=== PATIENT | male | born 1935 | race Caucasian/White ===

== ENCOUNTER 2018-10-31 | Outpatient (RCR) | END 2018-11-17 23:59 | CPT/HCPCS: 93798 ==

== ENCOUNTER 2018-11-19 07:38 | Outpatient (RCR) ==
[2018-10-31 14:37] VITALS: BMI 23.3
[2018-12-18 09:43] VITALS: BP 120/58
== END 2018-12-18 23:59 ==
LOC: CAR.REHAB 07:38
PROVIDERS: ATTEND Family Medicine
DX: I25.110 Atherosclerotic heart disease of native coronary artery with unstable angina pectoris (principal); Z95.1 Presence of aortocoronary bypass graft; R07.9 Chest pain, unspecified; I77.9 Disorder of arteries and arterioles, unspecified; I10 Essential (primary) hypertension
CPT/HCPCS: 93798

== ENCOUNTER 2018-12-19 07:05 | Outpatient (RCR) ==
[2018-10-31 14:37] VITALS: BMI 23.3
[2019-01-15 09:49] VITALS: BP 132/58
== END 2019-01-15 23:59 ==
LOC: CAR.REHAB 07:05
PROVIDERS: ATTEND Family Medicine
DX: I25.110 Atherosclerotic heart disease of native coronary artery with unstable angina pectoris (principal); Z95.1 Presence of aortocoronary bypass graft; I77.9 Disorder of arteries and arterioles, unspecified; R07.9 Chest pain, unspecified; I10 Essential (primary) hypertension
CPT/HCPCS: 93798

== ENCOUNTER 2019-01-16 07:03 | Outpatient (RCR) ==
[2018-10-31 14:37] VITALS: BMI 23.3
[2019-02-12 09:46] VITALS: BP 128/54
== END 2019-02-15 23:59 ==
LOC: CAR.REHAB 07:03
PROVIDERS: ATTEND Family Medicine
DX: I25.110 Atherosclerotic heart disease of native coronary artery with unstable angina pectoris (principal); Z95.1 Presence of aortocoronary bypass graft; R07.9 Chest pain, unspecified; I77.9 Disorder of arteries and arterioles, unspecified; I10 Essential (primary) hypertension
CPT/HCPCS: 93798

== ENCOUNTER 2019-02-16 09:33 | Outpatient (RCR) ==
[2018-10-31 14:37] VITALS: BMI 23.3
[2019-03-17 09:50] VITALS: BP 132/56
== END 2019-03-17 23:59 ==
LOC: CAR.REHAB 09:33
PROVIDERS: ATTEND Family Medicine
DX: I25.110 Atherosclerotic heart disease of native coronary artery with unstable angina pectoris (principal); Z95.1 Presence of aortocoronary bypass graft; R07.9 Chest pain, unspecified; I77.9 Disorder of arteries and arterioles, unspecified; I10 Essential (primary) hypertension
CPT/HCPCS: 93798

== ENCOUNTER 2019-03-18 07:24 | Outpatient (RCR) ==
[2018-10-31 14:37] VITALS: BMI 23.3
[2019-03-19 10:02] VITALS: BP 118/56
== END 2019-03-19 11:00 | disposition home or self-care (01) ==
LOC: CAR.REHAB 07:24
PROVIDERS: ATTEND Family Medicine
DX: I25.110 Atherosclerotic heart disease of native coronary artery with unstable angina pectoris (principal); I77.9 Disorder of arteries and arterioles, unspecified; I10 Essential (primary) hypertension; R07.9 Chest pain, unspecified; Z95.1 Presence of aortocoronary bypass graft
CPT/HCPCS: 93798

== ENCOUNTER 2024-08-27 06:53 | Observation (INO) ==
--- NOTE | 2024-08-27 07:32 | ED.PDOC ---
General ED Provider: Dr. ANYA VERNON MD Chief Complaint: Dizziness Stated Complaint: Patient with a history of polyneuropathy, type 2 diabetes, hypertension, spondylosis of lumbar spine with radiculopathy, gait difficulty and impairment of balance, complains of feeling dizzy since he is up this morning at 2 ambulation to the bathroom. Patient denies blurred vision, headache. Patient does have generalized weakness with ambulation which is his norm. Patient denies slurred speech focal numbness, tingling, weakness in extremity. Denies chest pain dyspnea, diaphoresis, palpitations. Patient states he has not taken his hypertensive meds today which includes hydralazine 25 mg every 8 hours, losartan 25 mg twice daily, Bystolic 10 mg daily, and nifedipine 60 mg daily. Time Seen by Provider: 08/27/24 07:20 Mode of Arrival: Wheelchair Information Source: Patient Exam Limitations: Clinical condition Primary Care Provider: MIKEY WATERMAN Nursing and Triage Documentation Reviewed and Agree: Yes What is Opioid Naive?: *Opioid Naive implies the patient is not already taking opioids or not chronically receiving opioids on a daily basis. *PRN dosing is not "usually" associated with tolerance. *Patients are at higher risk of over-sedation and aspiration. What is Opioid Tolerant?: *Opioid Tolerance implies less than the expected response to an opioid. *Acquired tolerance is defined by the patient taking 60mg of oral morphine daily (or equianalgesic dose of another opioid) for 1 week or more. *Often associated with chronic pain. *May take more than usual dose to achieve desired pain control. Review of Systems Review Of Systems Constitutional: Reports No symptoms Eyes: Reports No symptoms Ears, Nose, Mouth, Throat: Reports No symptoms Respiratory: Reports No symptoms Cardiac: Reports No symptoms GI: Reports No symptoms : Reports No symptoms Musculoskeletal: Reports No symptoms Skin: Reports No symptoms Neurological: Reports Weakness (Chronic weakness upon ambulation with gait disturbance) and Other ( dizziness, ) Endocrine: Reports No symptoms Hematologic/Lymphatic: Reports No symptoms All Other Systems: Reviewed and Negative [facility] Social History Smoking and tobacco status: Never smoker Physical Exam Physical Exam Appearance: Reports Well-appearing Ill-appearing: None Pain Distress: None Eyes: Reports HALEY, EOMI and Conjunctiva clear ENT: Reports Ears normal Neck: Supple Respiratory: Reports Airway patent Cardiovascular: Reports RRR and Pulses normal GI/: Reports Soft and Nontender Musculoskeletal: Reports Normal strength and ROM intact Skin: Reports Warm and Dry Neurological: Reports Sensation intact Psychiatric: Reports Affect appropriate NIH Stroke Scale 1a. Level of Consciousness: 0=Alert and keenly responsive 1b. Level of Consciousness Questions: 0=Answers correctly to two questions 1c. Level of Consciousness Commands: 0=Performs two tasks correctly 2. Best Gaze: 0=Normal 3. Visual: 0=No visual loss 4. Facial Palsy: 0=Normal 5a. Motor Left Arm: 0=No drift,arm holds 90 degrees for 10 sec., leg 30 degrees for 5 sec. 5b. Motor Right Arm: 0=No drift,arm holds 90 degrees for 10 sec., leg 30 degrees for 5 sec. 6a. Motor Left Le=No drift,arm holds 90 degrees for 10 sec., leg 30 degrees for 5 sec. 6b. Motor Right Le=No drift,arm holds 90 degrees for 10 sec., leg 30 degrees for 5 sec. 7. Limb Ataxia: 0=Absent 8. Sensory: 0=Normal 9. Best Language: 0=No aphasia 10. Dysarthria: 0=Normal 11. Extincion and Inattention: 0=Normal Stroke Scale Total: 0 Critical Care Note Critical Care Note Total Critical Care Time (mins): 0 Course Course 08/27/24 07:44 08/27/24 07:44 Orders, Labs, Meds: Lab Review 08/27/24 08/27/24 08/27/24 07:10 07:39 07:44 WBC 8.76 RBC 4.83 Hgb 13.7 L Hct 43.0 MCV 89.0 MCH 28.4 MCHC 31.9 RDW Coeff of Neri 13.0 Plt Count 309 Immature Gran % (Auto) 0.8 Neut % (Auto) 69.1 Lymph % (Auto) 19.5 [place] % (Auto) 7.8 Eos % (Auto) 2.5 Baso % (Auto) 0.3 Neut # (Auto) 6.1 Lymph # (Auto) 1.7 [place] # (Auto) 0.7 Eos # (Auto) 0.2 Baso # (Auto) 0.0 Immature Gran # (Auto) 0.1 PT 25.7 H INR 2.61 Sodium 141.9 Potassium 4.05 Chloride 107.5 H Carbon Dioxide 24.8 Anion Gap 13.65 BUN 20.2 H Creatinine 1.37 H Estimated GFR (MDRD) 49.00 BUN/Creatinine Ratio 14.74 Glucose 127.6 H Calcium 8.87 Magnesium 1.98 Total Bilirubin 0.57 AST 25.3 ALT 21.0 Alkaline Phosphatase 96.1 Troponin I < 0.012 Total Protein 7.36 Albumin 4.22 Globulin 3.14 Albumin/Globulin Ratio 1.34 Urine Color Yellow Urine Clarity Clear Urine pH 7.0 Ur Specific [place] 1.015 Urine Protein Trace H Urine Glucose (UA) Negative Urine Ketones Negative Urine Blood Trace-lysed Urine Nitrite Negative Urine Bilirubin Negative Urine Urobilinogen 0.2 Ur Leukocyte Esterase Negative Urine Microscopic WBC 0-2 Ur Squamous Epith Cells 2-5 SARS CoV-2 RNA Rapid MONI Negative Orders Category Date Time Status EKG-(ED ONLY) Stat CARDIO 08/27/24 07:32 Completed Unemployment Specialist [ED ORTHOPEDIC MECHANIC APPLIED] .ONCE EMERGENCY 08/27/24 07:32 Active Orthostatic Vital Signs [ED ORTHOSTATIC VITAL SIGNS] . EMERGENCY 08/27/24 07:34 Active ONCE Saline Lock [ED IV/MEDIPORT/POWERPORT] .ONCE EMERGENCY 08/27/24 07:32 Active CBC W/ AUTO DIFF Stat LAB 08/27/24 07:44 Completed CMP [COMPREHENSIVE METABOLIC PANEL] Stat LAB 08/27/24 07:44 Completed COVID [SARS COV-2 RNA RAPID MONI] Stat LAB 08/27/24 07:39 Completed MAGNESIUM Stat LAB 08/27/24 07:44 Completed PT WITH INR Stat LAB 08/27/24 07:44 Completed TROPONIN I Stat LAB 08/27/24 07:44 Completed URINALYSIS C & S IF INDICATED Stat LAB 08/27/24 07:10 Completed 0.9 % Sodium Chloride [Saline Flush] Meds 08/27/24 07:32 Active 1 syr IVF PRN PRN CHEST, 1V AP ONLY Stat RADS 08/27/24 07:[address] HEAD W/O CONTRAST Stat RADS 08/27/24 07:32 Completed Medications Generic Name Dose Route Start Last Admin Trade Name Freq PRN Reason Stop Dose Admin Sodium Chloride 1 syr 08/27/24 07:32 0.9% Sodium Chloride 10 Ml Disp.Syrin IVF PRN PRN To flush IV Vital Signs: Temp Pulse Resp BP Pulse Ox 08/27/24 08:03 164/82 H 08/27/24 08:03 186/90 H 08/27/24 08:03 181/96 H 08/27/24 06:55 97.3 F L 70 18 207/96 H 98 Physician Progress Note: Obtained from patient was a spouse, patient with a history of Drea neuropathy, hypertension, type 2 diabetes, gait disturbance, impairment of balance, lumbar degenerative disc disease with radiculopathy, complains of feeling dizzy upon ambulation to the bathroom 2:00 this morning. Patient denies headache, blurred vision, slurred speech, patient complains of chronic weakness upon ambulation. Patient states he has not taken his blood pressure medicine upon arrival to the emergency room this morning which includes hydralazine 25 mg 3 times daily, losartan 25 mg twice daily, Bystolic 10 mg daily, and nifedipine 60 mg daily. Patient also denies chest pain, diaphoresis, palpitations, coughing, dyspnea. Orthostatic vital signs blood pressure sitting 181/96 blood pressure standing 186/90, blood pressure laying 164/82. Patient was administered his home blood pressure medicines at 0 800 hydralazine 25 mg, losartan 25 g, Bystolic 10 mg, and nifedipine 60 mg orally 0743-EKG interpretation by myself consistent with normal sinus rhythm rate of 67 there is a right bundle branch block noted. There is no prolongation of DE QT interval there is no ectopy noted. There is no ischemic changes only. All laboratory data reviewed and are all within normal limits for the troponin, CBC, CMP. Portable chest x-ray interpretation radiologist consistent with borderline cardiomegaly without infiltrates, pleural effusion, consolidation. The head CT scan without IV contrast interpretation by the radiologist shows no acute intracranial abnormality there is no hemorrhage, mass effect, infarction, midline shift. 0900-repeat blood pressure 169/82 Differential diagnosis: 1) hypertensive urgency Discussed with hospitalist Sajan Smith at 0910 for observation with daily Discharge Plan Discharge Patient Disposition: PLACED OBSERVATION Discharge Problem: Hypertensive urgency Prescriptions: No Action tamsulosin 0.4 mg capsule 0.4 mg PO DAILY Patient Comments: TAKE 1 CAPSULE BY MOUTH ONCE DAILY warfarin 2 mg Tablet 2 mg PO EVERY OTHER DAY vitamin E 400 unit Capsule 400 unit PO DAILY insulin glargine 100 unit/mL Cartridge 50 unit SUBCUT DAILY hydrocodone-acetaminophen 5-325 mg tablet 1 tab PO PRN PRN (Reason: Pain) nifedipine 60 mg tablet extended release 24hr 60 mg PO DAILY warfarin 2 mg tablet 3 mg PO EVERY OTHER DAY cholecalciferol (vitamin D3) [Vitamin D3] 10 mcg (400 unit) Capsule 125 mcg PO DAILY finasteride 5 mg tablet 5 mg PO DAILY hydralazine 25 mg tablet 50 mg PO Q8H nebivolol 20 mg tablet 10 mg PO DAILY geriatric multivitamin-min Tablet 1 tab PO DAILY hydralazine 25 mg tablet 25 mg PO TID Qty: 90 0RF Rx Instructions: Discontinue 50 mg tablets and take this dose by mouth three times daily valacyclovir 1 gram tablet 1,000 mg PO TID linezolid 600 mg tablet 600 mg PO BID losartan 25 mg tablet 25 mg PO 2XD Did you review [place] [employer] for ALL controlled substances?: Not Applicable ED Provider: ANYA VERNON Condition: Stable [place] Coma Scale Felicita Coma Scale Response Scores: Best Response = 15 Comatose Client = 8 or Less Totally Unresponsive = 3
[2024-08-27 07:49] LABS: BASOPHILS % (AUTO) 0.3 % (0.0-3.0); EOSINOPHILS # (AUTO) 0.2 K/ul (0.0-0.7); EOSINOPHILS % (AUTO) 2.5 % (0.0-7.0); HEMOGLOBIN 13.7 g/dl (14.0-18.0); IMMATURE GRANULOCYTE # (AUTO) 0.1 (0.0-1.0); IMMATURE GRANULOCYTE % (AUTO) 0.8 % (0.0-5.0); LYMPHOCYTES # (AUTO) 1.7 K/uL (0.60-3.4); LYMPHOCYTES % (AUTO) 19.5 (10.0-50.0); MEAN CORPUSCULAR HEMOGLOBIN 28.4 pg (27.0-31.0); MEAN CORPUSCULAR HGB CONC 31.9 (31.8-35.4); MONOCYTES # (AUTO) 0.7 K/uL (0.4-2.0); MONOCYTES % (AUTO) 7.8 (0-10); NEUTROPHILS # (AUTO) 6.1 K/ul (2.0-6.9); NEUTROPHILS % (AUTO) 69.1 % (42.2-75.2); PLATELET COUNT 309 10^3/uL (140-440); RED BLOOD COUNT 4.83 10^6/ul (4.70-6.10); WHITE BLOOD COUNT 8.76 K/ul (4.2-10.2)
[2024-08-27 08:05] LABS: PROTHROMBIN TIME 25.7 SEC (9.3-11.0)
[2024-08-27 08:13] LABS: SARS COV-2 RNA RAPID NAAT NEGATIVE (NEGATIVE)
[2024-08-27 08:16] LABS: ALBUMIN 4.22 g/dL (3.5-5.0); ALKALINE PHOSPHATASE 96.1 U/L (56-119); ASPARTATE AMINO TRANSFERASE 25.3 U/L (17-59); BILIRUBIN,TOTAL 0.57 mg/dL (0.2-1.3); BLOOD UREA NITROGEN 20.2 mg/dL (9-20); CALCIUM 8.87 mg/dL (8.4-10.2); CARBON DIOXIDE 24.8 mmol/L (22-30.0); CHLORIDE 107.5 mmol/L (98-107); CREATININE 1.37 mg/dL (0.60-1.10); GLUCOSE 127.6 mg/dL (74-106); MAGNESIUM 1.98 mg/dL (1.6-2.3); POTASSIUM 4.05 mmol/L (3.5-5.1); SODIUM 141.9 mmol/L (134.5-145); TOTAL PROTEIN 7.36 g/dL (6.3-8.2)
[2024-08-27 08:18] LABS: BILIRUBIN,URINE Negative (NEGATIVE); CLARITY,URINE Clear (CLEAR); COLOR,URINE Yellow (YELLOW); GLUCOSE, URINE (UA) Negative (NEGATIVE); KETONES,URINE Negative (NEGATIVE); LEUKOCYTE ESTERASE ,URINE Negative (NEGATIVE); NITRITE,URINE Negative (NEGATIVE); PROTEIN,URINE Trace (NEGATIVE); URINE, BLOOD Trace-lysed (NEGATIVE); UROBILINOGEN,URINE 0.2 (0.2)
[2024-08-27 08:35] LABS: TROPONIN I < 0.012 ng/ml (0.0000-0.120)
[2024-08-27 08:35] LABS: URINE WBC, MICROSCOPIC 0-2 (0-2)
--- NOTE | 2024-08-27 09:00 | DI ---
EXAM: CHEST RADIOGRAPH TECHNIQUE: Single frontal chest radiograph. HISTORY: Shortness of breath. COMPARISON: 05/27/2023 FINDINGS: The patient is mildly leaning and rotated to the right. Sternotomy and CABG, again noted. EKG leads project over the chest. No pulmonary infiltrate is identified. No pleural effusion or pneumothorax is seen. Stable borderline cardiomegaly. No acute displaced rib fractures are identified. IMPRESSION: 1. No acute findings in the chest.
--- NOTE | 2024-08-27 09:01 | CT ---
EXAM: CT SCAN BRAIN WITHOUT CONTRAST HISTORY: Dizziness COMPARISON: CT scan brain 05/19/2023 FINDINGS: Helically acquired axial images were obtained the skull base to the convexities without co ntrast utilizing 5-mm collimation. Sagittal and coronal reconstructions were imaged and reviewed.. The ventricles and CSF spaces are prominent compatible with age appropriate atrophy. There is perive ntricular hypodensity noted compatible with chronic microvascular disease. There are no acute intrac ranial findings. Prominent arachnoid granulations IMPRESSION: No acute findings. All CT scans are performed using dose optimization techniques as appropriate to the performed exam an d include at least one of the following: Automated exposure control, adjustment of the mA and/or kV according t o size, and the use of iterative reconstruction technique.
[2024-08-27 10:07] VITALS: BMI 26.5
[2024-08-27] MEDS ORDERED: TYLENOL PO PRN (10:11)
[2024-08-27] MEDS ORDERED: NORCO 5-325 PO PRN (10:40)
[2024-08-27] MEDS: LANTUS SUBCUT SCH (11:03)
--- NOTE | 2024-08-27 11:42 | PCM ---
Date of Service Date Seen by Provider: 08/27/24 Time Seen by Provider: 11:15 Admit Day/Time Admission Date: 08/27/24 Reason for Admission Chief Complaint: HYPERTENSIVE URGENCY Hospital Provider Hospital [place] [facility] [place] Primary Care Physician: MIKEY WATERMAN History of Present Illness History of Present Illness: 88 yo male presented to the ER with dizziness. States that he gets up in the middle of the night to urinate multiple times and became dizzy the first time getting up. As the night went on, he reports the dizziness worsened. Called 911 and evaluated him to find elevated BP. Refused to come via EMS and came to ER private auto. BP still elevated with systolic in 200s initially. ER provider gave patient home medications and BP improved. Dizziness improved as well. No acute findings on work-up. Admitted to med/surg observation for hypertensive urgency. Case Discussed With Case Discussed With: Patient's case was discussed with the ER Physicians, Dr. Montano. [facility] Social History Smoking and tobacco status: Never smoker Allergies Allergies Allergy/AdvReac Type Severity Reaction Status Date / Time [id number] Reductase AdvReac Hives Verified 08/27/24 06:58 Inhibitor [Bpixqkx-Kku-Nzt Reductase Inhibitor] Current Medications Home Medications insulin glargine 100 unit/mL subcutaneous cartridge 50 unit subcut DAILY 03/25/21 [History Confirmed 08/27/24 Last Taken Unknown] tamsulosin 0.4 mg capsule 0.4 mg PO DAILY 03/25/21 [History Confirmed 08/27/24 Last Taken Unknown] vitamin E 268 mg (400 unit) capsule 400 unit PO DAILY 03/25/21 [History Confirmed 08/27/24 Last Taken Unknown] warfarin 2 mg tablet 3 mg PO BEDTIME 03/25/21 [History Confirmed 08/27/24 Last Taken Unknown] cholecalciferol (vitamin D3) 10 mcg (400 unit) capsule (Vitamin D3) 125 mcg PO DAILY 11/26/22 [History Confirmed 08/27/24 Last Taken Unknown] hydrocodone 5 mg-acetaminophen 325 mg tablet 1 tab PO DAILY PRN Pain 11/26/22 [History Confirmed 08/27/24 Last Taken Unknown] nifedipine 60 mg tablet,extended release 24 hr 60 mg PO DAILY 11/26/22 [History Confirmed 08/27/24 Last Taken Unknown] finasteride 5 mg tablet 5 mg PO DAILY 05/27/23 [History Confirmed 08/27/24 Last Taken Unknown] geriatric multivitamin-min 1 tab PO DAILY 05/27/23 [History Confirmed 08/27/24 Last Taken Unknown] hydralazine 25 mg tablet 25 mg PO TID #90 tabs 05/27/23 [Rx Confirmed 08/27/24 Last Taken Unknown] nebivolol 20 mg tablet 10 mg PO DAILY 05/27/23 [History Confirmed 08/27/24 Last Taken Unknown] linezolid 600 mg tablet 600 mg PO BID 08/27/24 [History Confirmed 08/27/24 Last Taken Unknown] losartan 25 mg tablet 25 mg PO 2XD 08/27/24 [History Confirmed 08/27/24 Last Taken Unknown] valacyclovir 1 gram tablet 1,000 mg PO TID 08/27/24 [History Confirmed 08/27/24 Last Taken Unknown] Home Acetaminophen (Acetaminophen 325 Mg Tablet) 650 mg PO Q4H PRN PRN Reason: Mild Pain Hydrocodone Bitart/Acetaminophen (Hydrocodone Bit/Acetaminophen 5/325 Mg Tablet) 1 tab PO DAILY PRN PRN Reason: Pain Finasteride (Finasteride 5 Mg Tablet) 5 mg PO DAILY [facility] Hydralazine HCl (Hydralazine Hcl 50 Mg Tablet) 25 mg PO TID [facility] Insulin Glargine (Insulin Glargine,Hum.Rec.Anlog 100 Units/Ml) 50 unit SUBCUT DAILY [facility] Last Admin: 08/27/24 11:03 Dose: 50 unit Losartan Potassium (Losartan Potassium 25 Mg Tablet) 25 mg PO 2XD [facility] Nebivolol (Nebivolol Hcl 5 Mg Tablet) 10 mg PO DAILY [facility] Nifedipine (Nifedipine 30 Mg Tab.Er.24) 60 mg PO DAILY [facility] Sodium Chloride (0.9% Sodium Chloride 10 Ml Disp.Syrin) 1 syr IVF PRN PRN PRN Reason: To flush IV Tamsulosin HCl (Tamsulosin Hcl 0.4 Mg Cap.Er.24h) 0.4 mg PO DAILY [facility] Warfarin Sodium (Warfarin Sodium 2 Mg Tablet) 3 mg PO QPM [facility] Opioid Naive vs. Tolerant Does Patient Take Opioids?: No Is Patient Opioid Naive?: Yes What is Opioid Naive?: *Opioid Naive implies the patient is not already taking opioids or not chronically receiving opioids on a daily basis. *PRN dosing is not "usually" associated with tolerance. *Patients are at higher risk of over-sedation and aspiration. Is Patient Opioid Tolerant?: No What is Opioid Tolerant?: *Opioid Tolerance implies less than the expected response to an opioid. *Acquired tolerance is defined by the patient taking 60mg of oral morphine daily (or equianalgesic dose of another opioid) for 1 week or more. *Often associated with chronic pain. *May take more than usual dose to achieve desired pain control. Review of Systems Constitutional: Reports No symptoms Head: Reports Normocephalic Eyes: Reports No symptoms Ears: Reports No symptoms Nose: Reports No symptoms Mouth: Reports No symptoms Throat: Reports No symptoms Cardiovascular: Reports No symptoms Respiratory: Reports No symptoms Gastrointestinal: Reports No symptoms Genitourinary: Reports No Symptoms Musculoskeletal: Reports No symptoms Endocrine: Reports No symptoms Hematology: Reports No symptoms Immunology: Reports No symptoms Neurological: Reports Dizziness Psychiatric: Reports No symptoms Physical examination Most Recent Vital Signs: Most Recent Vital Signs Temperature 97.1 F L 08/27/24 10:00 Temperature Source Oral 08/27/24 10:00 Temperature Source Temporal Artery Scan 08/27/24 06:55 Pulse Rate 62 08/27/24 10:00 Respiratory Rate 18 08/27/24 10:00 Blood Pressure 151/79 H 08/27/24 10:00 Blood Pressure Mean 103 08/27/24 10:00 Blood Pressure Left Arm 151/79 08/27/24 09:50 Blood Pressure Location Right Arm 08/27/24 08:03 Blood Pressure Position Supine 08/27/24 09:50 O2 Sat by Pulse Oximetry 96 08/27/24 10:00 Oxygen Delivery Method Room Air 08/27/24 11:00 Height 6 ft 2 in 08/27/24 09:50 Weight 93.8 kg 08/27/24 09:50 Telemetry Type Remote Telemetry 08/27/24 10:48 Telemetry Monitoring Started 08/27/24 10:48 Telemetry Heart Rate 64 08/27/24 10:48 EKG CO Interval 0.21 H 08/27/24 10:48 EKG QRS Interval 0.06 08/27/24 10:48 Telemetry Strip Reading SR/1st degree AVB 08/27/24 10:48 Appearance: Positive No Apparent Distress and Alert and Oriented x3 Skin: Positive Warm and Good Turgor HEENT: Positive Normocephalic and PERRLA Neck: Positive Supple and Midline Trachea Chest/Lungs: Positive Symmetrical With Equal Breath Sounds, Clear to Auscultation Bilaterally and Good Air Movement all 4 Lung [place] Heart: Positive RRR and Pulses Normal GI/: Positive Soft, Nontender, Bowel Sounds Normal, No Distention and No Organomegaly Musculoskeletal: Positive Not Examined Extremities: Positive Intact Peripheral Pulses, Stable Joints Without Laxity and Good ROM in All Joints Neurological: Positive Sensation Intact, Motor intact, Alert, Oriented and Muscle Strength 5/5 in Upper and Lower Extremities Bilaterally Labs This Visit Labs This Visit: Labs This Visit 08/27/24 08/27/24 08/27/24 07:10 07:39 07:44 WBC 8.76 RBC 4.83 Hgb 13.7 L Hct 43.0 MCV 89.0 MCH 28.4 MCHC 31.9 RDW Coeff of Neri 13.0 Plt Count 309 Immature Gran % (Auto) 0.8 Neut % (Auto) 69.1 Lymph % (Auto) 19.5 [place] % (Auto) 7.8 Eos % (Auto) 2.5 Baso % (Auto) 0.3 Neut # (Auto) 6.1 Lymph # (Auto) 1.7 [place] # (Auto) 0.7 Eos # (Auto) 0.2 Baso # (Auto) 0.0 Immature Gran # (Auto) 0.1 PT 25.7 H INR 2.61 Sodium 141.9 Potassium 4.05 Chloride 107.5 H Carbon Dioxide 24.8 Anion Gap 13.65 BUN 20.2 H Creatinine 1.37 H Estimated GFR (MDRD) 49.00 BUN/Creatinine Ratio 14.74 Glucose 127.6 H Calcium 8.87 Magnesium 1.98 Total Bilirubin 0.57 AST 25.3 ALT 21.0 Alkaline Phosphatase 96.1 Troponin I < 0.012 Total Protein 7.36 Albumin 4.22 Globulin 3.14 Albumin/Globulin Ratio 1.34 Urine Color Yellow Urine Clarity Clear Urine pH 7.0 Ur Specific [place] 1.015 Urine Protein Trace H Urine Glucose (UA) Negative Urine Ketones Negative Urine Blood Trace-lysed Urine Nitrite Negative Urine Bilirubin Negative Urine Urobilinogen 0.2 Ur Leukocyte Esterase Negative Urine Microscopic WBC 0-2 Ur Squamous Epith Cells 2-5 SARS CoV-2 RNA Rapid MONI Negative Imaging Imaging: EXAM: CT SCAN BRAIN WITHOUT CONTRAST HISTORY: Dizziness COMPARISON: CT scan brain 05/19/2023 FINDINGS: Helically acquired axial images were obtained the skull base to the convexities without contrast utilizing 5-mm collimation. Sagittal and coronal reconstructions were imaged and reviewed.. The ventricles and CSF spaces are prominent compatible with age appropriate atrophy. There is periventricular hypodensity noted compatible with chronic microvascular disease. There are no acute intracranial findings. Prominent arachnoid granulations IMPRESSION: No acute findings. EXAM: CHEST RADIOGRAPH TECHNIQUE: Single frontal chest radiograph. HISTORY: Shortness of breath. COMPARISON: 05/27/2023 FINDINGS: The patient is mildly leaning and rotated to the right. Sternotomy and CABG, again noted. EKG leads project over the chest. No pulmonary infiltrate is identified. No pleural effusion or pneumothorax is seen. Stable borderline cardiomegaly. No acute displaced rib fractures are identified. IMPRESSION: 1. No acute findings in the chest. Review Statement Review Statement: I have independently reviewed and interpreted the labs/EKGs/imaging that were ordered by the ER provider. I have reviewed all outside records that are available currently in our EMR including imaging/notes/labs from previous visits. Plan Plan: 1. Hypertensive Urgency - improving, resume home medications - will adjust if needed 2. Dizziness - resolved at this time 3. Diabetes - accuchecks achs, continue long acting 4. Chronic anticoagulation - INR therapeutic, continue coumadin 5. BPH - chronic, continue home medications DVT Prophylaxis: coumadin Time Spent: Greater than 80 minutes spent with patient, 50% of the time spent with this patient was devoted to counseling and coordination of care. [facility] minutes spent discussing advance care planning. Disposition: Admit to: Med/surg Observation DNI Discussed Plan of Care with Dr. Yolanda Aviles. Medications Medication Orders: Medications Ordered Category Date Time Status 0.9 % Sodium Chloride [Saline Flush] Meds 08/27/24 07:32 Active 1 syr IVF PRN PRN Acetaminophen [Tylenol] Meds 08/27/24 10:11 Active 650 mg PO Q4H PRN Finasteride [Proscar] Meds 08/28/24 09:00 Active 5 mg PO DAILY Hydralazine HCl [Apresoline] Meds 08/27/24 15:00 Active 25 mg PO TID Hydrocodone Bit/Acetaminophen [[place] 5-325] Meds 08/27/24 10:40 Active 1 tab PO DAILY PRN Insulin Glargine,Hum.rec.anlog [Lantus] Meds 08/27/24 10:45 Active 50 unit SUBCUT DAILY Losartan Potassium [Cozaar] Meds 08/27/24 21:00 Active 25 mg PO 2XD Nebivolol HCl [Bystolic] Meds 08/28/24 09:00 Active 10 mg PO DAILY Nifedipine [Procardia Xl] Meds 08/28/24 09:00 Active 60 mg PO DAILY Tamsulosin HCl [Flomax] Meds 08/28/24 09:00 Active 0.4 mg PO DAILY Warfarin Sodium [Coumadin] Meds 08/27/24 17:00 Active 3 mg PO QPM
[2024-08-27] MEDS: APRESOLINE PO SCH (14:55)
[2024-08-27] MEDS: COUMADIN PO SCH (16:32)
[2024-08-27] MEDS: COZAAR PO SCH (20:48)
[2024-08-27] MEDS ORDERED: COZAAR PO SCH (21:00)
[2024-08-28] MEDS: APRESOLINE PO STA (02:14)
[2024-08-28 05:17] LABS: BASOPHILS % (AUTO) 0.3 % (0.0-3.0); EOSINOPHILS # (AUTO) 0.3 K/ul (0.0-0.7); EOSINOPHILS % (AUTO) 3.1 % (0.0-7.0); HEMATOCRIT 43.7 % (42.0-52.0); HEMOGLOBIN 13.8 g/dl (14.0-18.0); IMMATURE GRANULOCYTE # (AUTO) 0.1 (0.0-1.0); IMMATURE GRANULOCYTE % (AUTO) 0.7 % (0.0-5.0); LYMPHOCYTES % (AUTO) 32.2 (10.0-50.0); MEAN CORPUSCULAR HEMOGLOBIN 27.9 pg (27.0-31.0); MEAN CORPUSCULAR HGB CONC 31.6 (31.8-35.4); MEAN CORPUSCULAR VOLUME 88.5 fl (80.0-94.0); MONOCYTES # (AUTO) 0.9 K/uL (0.4-2.0); MONOCYTES % (AUTO) 9.2 (0-10); NEUTROPHILS % (AUTO) 54.5 % (42.2-75.2); PLATELET COUNT 327 10^3/uL (140-440); RDW COEFFICIENT OF VARIATION 13.2 % (11.6-14.8); RED BLOOD COUNT 4.94 10^6/ul (4.70-6.10); WHITE BLOOD COUNT 9.21 K/ul (4.2-10.2)
[2024-08-28 05:28] LABS: PROTHROMBIN TIME 23.5 SEC (9.3-11.0)
[2024-08-28 05:32] LABS: ALANINE AMINOTRANSFERASE 19.6 U/L (0-50); ALBUMIN 4.13 g/dL (3.5-5.0); ALKALINE PHOSPHATASE 79.3 U/L (56-119); ASPARTATE AMINO TRANSFERASE 25.7 U/L (17-59); BILIRUBIN,TOTAL 0.72 mg/dL (0.2-1.3); BLOOD UREA NITROGEN 20.8 mg/dL (9-20); CALCIUM 8.82 mg/dL (8.4-10.2); CARBON DIOXIDE 23.1 mmol/L (22-30.0); CHLORIDE 108.6 mmol/L (98-107); CREATININE 1.53 mg/dL (0.60-1.10); POTASSIUM 3.84 mmol/L (3.5-5.1); SODIUM 142.9 mmol/L (134.5-145); TOTAL PROTEIN 7.18 g/dL (6.3-8.2)
[2024-08-28] MEDS: PROCARDIA XL PO SCH (05:43)
[2024-08-28] MEDS: APRESOLINE PO SCH (07:39)
[2024-08-28] MEDS: PROSCAR PO SCH (07:39)
[2024-08-28] MEDS: BYSTOLIC PO SCH ×2 (07:39→09:00)
[2024-08-28] MEDS: FLOMAX PO SCH (07:40)
[2024-08-28] MEDS ORDERED: PROCARDIA XL PO SCH (09:00)
[2024-08-28 10:23] VITALS: RESP 18; TEMP 97.6
--- NOTE | 2024-08-28 13:49 | DCSUM ---
Admission Date Admission Date: 08/27/24 Discharge Date Discharge Date: 08/28/24 Admission Diagnosis Admission Diagnosis: 1. Hypertensive Urgency 2. Dizziness 3. Diabetes 4. Chronic anticoagulation 5. BPH Discharge Diagnosis Discharge Diagnosis: 1. Hypertensive Urgency - Resolved, SBP in 160s 2. Dizziness - Resolved 3. Diabetes - Chronic, stable 4. Chronic anticoagulation - INR therapeutic, continue coumadin 5. BPH - chronic, stable Hospital Provider Hospital Provider: SUSANNA COYNE, [facility] [place] Primary Care Physician Primary Care Physician: MIKEY WATERMAN Summary of History and Physical Summary of History and Physical: 88 yo male presented to the ER with dizziness. States that he gets up in the middle of the night to urinate multiple times and became dizzy the first time getting up. As the night went on, he reports the dizziness worsened. Called 911 and evaluated him to find elevated BP. Refused to come via EMS and came to ER private auto. BP still elevated with systolic in 200s initially. ER provider gave patient home medications and BP improved. Dizziness improved as well. No acute findings on work-up. Admitted to med/surg observation for hypertensive urgency. Hospital Course Subjective: Overnight, there was a mix up with his nifedipine. Did not receive night time down and BP remained elevated. Patient reports dizziness has not returned. Losartan was increased to 50 mg twice and hydralazine was increased to 50 mg thr ee times a day. Tolerating well. No further changes. Requesting to go home. Appearance: Pleasant, No Apparent Distress and Alert HEENT: MMM, Supple and No JVD CVS: No Murmur Abdomen: Soft, Non-Tender and No Distention Respiratory: No Dyspnea Extremities: No Edema Vital Signs: Most Recent Vital Signs Temperature 97.6 F 08/28/24 10:00 Temperature Source Oral 08/28/24 10:00 Temperature Source Temporal Artery Scan 08/27/24 06:55 Pulse Rate 69 08/28/24 10:00 Respiratory Rate 18 08/28/24 10:00 Blood Pressure 200/84 H 08/28/24 10:00 Blood Pressure Mean 122 08/28/24 10:00 Blood Pressure Left Arm 151/79 08/27/24 09:50 Blood Pressure Location Left Arm 08/28/24 10:00 Blood Pressure Position Supine 08/28/24 10:00 O2 Sat by Pulse Oximetry 98 08/28/24 10:00 Oxygen Delivery Method Room Air 08/28/24 13:00 Height 6 ft 2 in 08/27/24 09:50 Weight 93.8 kg 08/27/24 09:50 Telemetry Type Remote Telemetry 08/28/24 01:00 Telemetry Monitoring Continues 08/28/24 01:00 Telemetry Heart Rate 49 L 08/28/24 01:00 EKG IA Interval 0.20 08/28/24 01:00 EKG QRS Interval 0.07 08/28/24 01:00 Telemetry Strip Reading SB 08/28/24 01:00 Imaging: EXAM: CT SCAN BRAIN WITHOUT CONTRAST HISTORY: Dizziness COMPARISON: CT scan brain 05/19/2023 FINDINGS: Helically acquired axial images were obtained the skull base to the convexities without contrast utilizing 5-mm collimation. Sagittal and coronal reconstructions were imaged and reviewed.. The ventricles and CSF spaces are prominent compatible with age appropriate atrophy. There is periventricular hypodensity noted compatible with chronic microvascular disease. There are no acute intracranial findings. Prominent arachnoid granulations IMPRESSION: No acute findings. EXAM: CHEST RADIOGRAPH TECHNIQUE: Single frontal chest radiograph. HISTORY: Shortness of breath. COMPARISON: 05/27/2023 FINDINGS: The patient is mildly leaning and rotated to the right. Sternotomy and CABG, again noted. EKG leads project over the chest. No pulmonary infiltrate is identified. No pleural effusion or pneumothorax is seen. Stable borderline cardiomegaly. No acute displaced rib fractures are identified. IMPRESSION: 1. No acute findings in the chest. Lab Results Last 24 Hours: 08/28/24 04:50 WBC 9.21 RBC 4.94 Hgb 13.8 L Hct 43.7 MCV 88.5 MCH 27.9 MCHC 31.6 L RDW Coeff of Neri 13.2 Plt Count 327 Immature Gran % (Auto) 0.7 Neut % (Auto) 54.5 Lymph % (Auto) 32.2 Pacific % (Auto) 9.2 Eos % (Auto) 3.1 Baso % (Auto) 0.3 Neut # (Auto) 5.0 Lymph # (Auto) 3.0 Pacific # (Auto) 0.9 Eos # (Auto) 0.3 Baso # (Auto) 0.0 Immature Gran # (Auto) 0.1 PT 23.5 H INR 2.37 Sodium 142.9 Potassium 3.84 Chloride 108.6 H Carbon Dioxide 23.1 Anion Gap 15.04 BUN 20.8 H Creatinine 1.53 H Estimated GFR (MDRD) 43.00 BUN/Creatinine Ratio 13.59 Glucose 102.0 Calcium 8.82 Total Bilirubin 0.72 AST 25.7 ALT 19.6 Alkaline Phosphatase 79.3 Total Protein 7.18 Albumin 4.13 Globulin 3.05 Albumin/Globulin Ratio 1.35 Discharge Instructions Discharge Planning: Discharge Planning > 40 minutes If patient is discharged with left ventricular systolic dysfunction: NA Discharged with a beta franklin? [] If no, why not? [] Discharged with an manan/arb? [] If no, why not? [] Diagnosis: Hypertensive Urgency Diet: Diabetic Activity as tolerated Follow-up with PCP next week. Medications: Losartan 50 mg twice a day Hydralazine 50 mg three times a day Discharge Medications: Medications at Discharge (Home Meds & RX) insulin glargine 100 unit/mL subcutaneous cartridge 50 unit subcut DAILY 03/25/21 tamsulosin 0.4 mg capsule 0.4 mg PO DAILY 03/25/21 vitamin E 268 mg (400 unit) capsule 400 unit PO DAILY 03/25/21 warfarin 2 mg tablet 3 mg PO BEDTIME 03/25/21 cholecalciferol (vitamin D3) 10 mcg (400 unit) capsule (Vitamin D3) 125 mcg PO DAILY 11/26/22 hydrocodone 5 mg-acetaminophen 325 mg tablet 1 tab PO DAILY PRN Pain 11/26/22 nifedipine 60 mg tablet,extended release 24 hr 60 mg PO BID 11/26/22 finasteride 5 mg tablet 5 mg PO DAILY 05/27/23 geriatric multivitamin-min 1 tab PO DAILY 05/27/23 hydralazine 25 mg tablet 25 mg PO TID #90 tabs 05/27/23 nebivolol 20 mg tablet 10 mg PO DAILY 05/27/23 losartan 25 mg tablet 25 mg PO 2XD 08/27/24 Discharge Plan Discharge Discharge Orders: Discharge Patient (ONCE); Ordered 08/28/24 Ordered By: CHARLENE JOLLEY Activity Restrictions/Additional Instructions: Diagnosis: Hypertensive Urgency Diet: Diabetic Activity as tolerated Follow-up with PCP next week. Medications: Losartan 50 mg twice a day Hydralazine 50 mg three times a day Instructions: Hypertensive Crisis (GEN) Patient Disposition: HOME WITH FAMILY CARE Prescriptions: New hydralazine 50 mg Tablet 50 mg PO TID Qty: 90 0RF losartan 50 mg tablet 50 mg PO Q12HR Qty: 60 0RF Continued tamsulosin 0.4 mg capsule 0.4 mg PO DAILY Patient Comments: TAKE 1 CAPSULE BY MOUTH ONCE DAILY warfarin 2 mg Tablet 3 mg PO BEDTIME vitamin E 400 unit Capsule 400 unit PO DAILY insulin glargine 100 unit/mL Cartridge 50 unit SUBCUT DAILY hydrocodone-acetaminophen 5-325 mg tablet 1 tab PO DAILY PRN (Reason: Pain) nifedipine 60 mg tablet extended release 24hr 60 mg PO BID cholecalciferol (vitamin D3) [Vitamin D3] 10 mcg (400 unit) Capsule 125 mcg PO DAILY finasteride 5 mg tablet 5 mg PO DAILY nebivolol 20 mg tablet 10 mg PO DAILY geriatric multivitamin-min Tablet 1 tab PO DAILY Discontinued hydralazine 25 mg tablet 25 mg PO TID Qty: 90 0RF Rx Instructions: Discontinue 50 mg tablets and take this dose by mouth three times daily losartan 25 mg tablet 25 mg PO 2XD Did you review [place] [employer] for ALL controlled substances?: No Discussed opioids are addictive and Narcan is available by prescription or from pharmacy.: No Condition: Stable
[2024-08-28 15:02] VITALS: BP 168/88; PULSE 70
[2024-08-28] MEDS ORDERED: FLOMAX PO SCH (21:00)
[2024-08-29] MEDS ORDERED: BYSTOLIC PO SCH (09:00)
[2024-08-29] MEDS ORDERED: COUMADIN PO SCH (09:00)
== END 2024-08-28 14:50 | disposition home or self-care (01) ==
LOC: ED 06:53 → MEDSURG B 06:53
PROVIDERS: ADMIT Hospitalist; ATTEND Nurse Practitioner Family
DX: Z79.01 Long term (current) use of anticoagulants; I16.0 Hypertensive urgency; N40.0 Benign prostatic hyperplasia without lower urinary tract symptoms; E11.9 Type 2 diabetes mellitus without complications; Z51.81 Encounter for therapeutic drug level monitoring; Z79.899 Other long term (current) drug therapy; Z20.822 Contact with and (suspected) exposure to COVID-19; Z79.4 Long term (current) use of insulin; R42 Dizziness and giddiness